=== PATIENT | female | born 1965 | race African-American/Black ===

== ENCOUNTER → 2016-08-07 | Outpatient (CLI) | payer BC ==
[2015-05-21 21:23] VITALS: BP 111/61
[~2016-08-07] MED LIST: ALBU2.5V5 NEB; AMLO5TAB2 PO; ATOR10TA60 PO; FURO40TA4 PO; GLYB5TAB3 PO; POTA20TA4 PO
--- NOTE | 2016-08-07 14:06 | RAD ---
DATE: 08/07/2016 EXAM: DIGITAL SCREEN BILAT W/CAD HISTORY: Screening COMPARISON: 3 years earlier This study was interpreted with the benefit of Computerized Aided Detection (CAD). FINDINGS: The breast parenchyma is primarily fatty replaced. Breast parenchyma level density A.. There is a reasonably well-defined density, almost certainly benign, along the plane of the nipple in the right breast on the cc view. A coned compression view and rolled CC views are suggested. A definite correlate is not seen on the corresponding MLO view. The left breast appears unchanged IMPRESSION: Density in the right breast for which additional imaging is suggested BI-RADS CATEGORY: 0 INCOMPLETE: NEED ADDITIONAL IMAGING EVAULATION AND/OR PRIOR MAMMOGRAMS FOR COMPARISON RECOMMENDED FOLLOW-UP: ADD ADDITIONAL IMAGING PQRS compliance statement: Patient information was entered into a reminder system with a target due date soon for the next mammogram. Mammography is a sensitive method for finding small breast cancers, but it does not detect them all and is not a substitute for careful clinical examination. A negative mammogram does not negate a clinically suspicious finding and should not result in delay in biopsying a clinically suspicious abnormality. "Our facility is accredited by the [employer] Mammography [employer]."
== END | disposition home or self-care (01) ==
LOC: MAMMO 16:39
PROVIDERS: ATTEND Family Medicine
DX: Z12.31 Encounter for screening mammogram for malignant neoplasm of breast (principal)
CPT/HCPCS: 77052; G0202

== ENCOUNTER → 2016-10-15 | Outpatient (CLI) | payer BC ==
[2015-05-21 21:23] VITALS: BP 111/61
--- NOTE | 2016-10-22 10:45 | RAD ---
DATE: 10/15/2016 EXAM: DIGITAL DIAGNOSTIC RT HISTORY: Suspicious screening study COMPARISON: 08/07/2016, 07/30/2013 This study was interpreted with the benefit of Computerized Aided Detection (CAD). FINDINGS: Additional views of the right breast confirm the presence of a small 6 to 7 mm nodule at approximately the 6:00 location in the right breast. Its margins are smooth. No microcalcifications are seen. Right breast ultrasound, 10/15/2016: A targeted ultrasound exam of the right breast was performed at the 6:00 location. Approximately 4 cm below the level of the nipple there is a small hypoechoic nodule identified measuring 5.8 x 6.4 x 3.3 mm. There are low level internal echoes. No posterior acoustic enhancement or shadowing is seen. Some of its margins are smooth while others are less clearly defined. This may be a complicated cyst or solid nodule. This corresponds in size and location to the mammographic abnormality. No other abnormality is seen. IMPRESSION: Suspicious small nodule at the 6:00 location in the right breast as described above. Ultrasound-guided biopsy is suggested for further evaluation. BI-RADS CATEGORY: 4 SUSPICIOUS ABNORMALITY- BIOPSY SHOULD BE CONSIDERED RECOMMENDED FOLLOW-UP: BIO BIOPSY RECOMMENDED Note: The findings were discussed with the patient at the time of the exam and she is aware of the recommendation for biopsy. She will follow-up with the ordering physician. PQRS compliance statement: Patient information was entered into a reminder system with a target due date for the next mammogram. Mammography is a sensitive method for finding small breast cancers, but it does not detect them all and is not a substitute for careful clinical examination. A negative mammogram does not negate a clinically suspicious finding and should not result in delay in biopsying a clinically suspicious abnormality. "Our facility is accredited by the [employer] Mammography [employer]." DICTATED and SIGNED BY: YULIANA NATION MD DATE: 10/15/16 1331 MTDArlene
== END | disposition home or self-care (01) ==
LOC: MAMMO 13:01
PROVIDERS: ATTEND Family Medicine
DX: R92.8 Other abnormal and inconclusive findings on diagnostic imaging of breast (principal)
CPT/HCPCS: 76641; G0206; 77065

== ENCOUNTER 2017-09-20 16:31 | Emergency (ER) | payer MEDICAID ==
[2017-09-20 18:06] LABS: INFLUENZA A PATIENT NEGATIVE (NEGATIVE); INFLUENZA B PATIENT NEGATIVE (NEGATIVE); OBC FLU VALID
== END 2017-09-20 18:23 | disposition home or self-care (01) ==
LOC: ER 18:23
DX: J01.90 Acute sinusitis, unspecified (principal); I11.0 Hypertensive heart disease with heart failure; I50.9 Heart failure, unspecified; K21.9 Gastro-esophageal reflux disease without esophagitis; E78.00 Pure hypercholesterolemia, unspecified; E11.9 Type 2 diabetes mellitus without complications; J45.909 Unspecified asthma, uncomplicated; Z98.51 Tubal ligation status; Z88.0 Allergy status to penicillin; Z88.5 Allergy status to narcotic agent; Z88.8 Allergy status to other drugs, medicaments and biological substances; Z91.040 Latex allergy status
CPT/HCPCS: 87804; 87804-59; 99284

== ENCOUNTER → 2017-10-14 | Outpatient (CLI) | payer MEDICAID, OTHER ==
[~2017-10-14] MED LIST changes: -ALBU2.5V5 NEB; -AMLO5TAB2 PO; -ATOR10TA60 PO; -FURO40TA4 PO; -GLYB5TAB3 PO; +LIDOCAINE 1% Multi-Dose 20 ML VIAL. INJ; +LIDOCAINE 2%/EPI 1:100,000 20 ML VIAL. IJ; -POTA20TA4 PO
== END | disposition home or self-care (01) ==
LOC: US 07:59
DX: D24.1 Benign neoplasm of right breast (principal); N62 Hypertrophy of breast; N60.41 Mammary duct ectasia of right breast; N60.81 Other benign mammary dysplasias of right breast; N60.31 Fibrosclerosis of right breast; Z88.0 Allergy status to penicillin; Z88.5 Allergy status to narcotic agent; Z91.040 Latex allergy status; Z88.8 Allergy status to other drugs, medicaments and biological substances
CPT/HCPCS: 19081; 76942; 77065; 88305; C1713

== ENCOUNTER → 2017-10-31 | Outpatient (CLI) | payer MEDICAID | END | disposition home or self-care (01) | LOC: ECHO 08:39 | DX: I10 Essential (primary) hypertension (principal); I51.7 Cardiomegaly; R06.00 Dyspnea, unspecified; R53.83 Other fatigue | CPT/HCPCS: 93306 ==

== ENCOUNTER 2019-05-05 18:03 | Emergency (ER) | payer MEDICAID ==
[~2019-05-05] VITALS: Ht 149.9 cm; Wt 106.6 kg
[~2019-05-05 18:03] MED LIST changes: +ALBU2.5V5 NEB; +AMLO5TAB10 PO; +ATOR10TA60 PO; +DOXY100C2 PO; +FURO40TA4 PO; +GLYB5TAB3 PO; -LIDOCAINE 1% Multi-Dose 20 ML VIAL. INJ; -LIDOCAINE 2%/EPI 1:100,000 20 ML VIAL. IJ; +POTA20TA4 PO
--- NOTE | 2019-05-05 18:43 | PHYS DOC ---
Past Medical History Past Medical History: Asthma, CHF, Diabetes-Type II, GERD, High Cholesterol, Hypertension, Other Additional Past Medical Histor: morbidly obese Past Surgical History: Tubal ligation Alcohol Use: None Drug Use: None Adult General Chief Complaint Chief Complaint: MECHANICAL FALL HPI HPI 53-year-old female presents to the emergency department after a fall around 4:15 today. Patient states she was getting out of the car, felt dizzy fell backwards hitting her head unknown loss of consciousness, states she was on the floor possibly 30 minutes. She denies any blood thinning medications. Patient is a History of hypertension, hyperlipidemia, depression, COPD. Patient denies any chest pain, shortness of breath, nausea, vomiting. She does have headache, neck pain, back pain with pinpoint tenderness along her thoracic and lumbar spine. She denies any symptoms prior to her dizziness. Movements make her pain worse and nothing makes his pain better. Review of Systems Review of Systems Constitutional: Denies fever or chills [] Eyes: Denies change in visual acuity, redness, or eye pain [] HENT: Denies nasal congestion or sore throat [] Respiratory: Denies cough or shortness of breath [] Cardiovascular: No additional information not addressed in HPI [] GI: Denies abdominal pain, nausea, vomiting, bloody stools or diarrhea [] : Denies dysuria or hematuria [] Musculoskeletal: Neck, back pain thoracic and lumbar Integument: Denies rash or skin lesions [] Neurologic: Headache, no visual changes All other systems were reviewed and found to be within normal limits, except as documented in this note. Current Medications Current Medications Current Medications Medications (Trade) Dose Ordered Sig/Consuelo Start Time Stop Time Status Last Admin Dose Admin Info (CONTRAST GIVEN -- Rx MONITORING) 1 each PRN DAILY PRN 05/05/19 20:45 05/07/19 20:44 Iohexol (Omnipaque 350 Mg/ml) 70 ml 1X ONCE 05/05/19 20:45 05/05/19 20:46 DC 05/05/19 20:49 70 ML Ketorolac Tromethamine (Toradol 30mg Vial) 30 mg 1X ONCE 05/05/19 20:00 05/05/19 20:01 DC 05/05/19 19:57 30 MG Tramadol HCl (Ultram) 50 mg 1X ONCE 05/05/19 21:00 05/05/19 21:01 DC 05/05/19 21:18 50 MG Allergies Allergies Allergies Coded Allergies Type Severity Reaction Last Updated Verified Penicillins Allergy Intermediate 01/10/15 Yes codeine Allergy Intermediate vomiting 01/10/15 Yes latex Allergy Intermediate rash 01/10/15 Yes metformin Allergy Intermediate n/v 01/10/15 Yes Physical Exam Physical Exam Constitutional: Well developed, well nourished, distressed secondary to pain HENT: Normocephalic, atraumatic, bilateral external ears normal, oropharynx moist, no oral exudates, nose normal. [] Eyes: PERRLA, EOMI, conjunctiva normal, no discharge. [] Neck: Palpation with range of motion, midline Cardiovascular:Heart rate regular rhythm, no murmur [] Lungs & Thorax: Bilateral breath sounds clear to auscultation [] Abdomen: Bowel sounds normal, soft, no tenderness, no masses, no pulsatile masses. [] Skin: Warm, dry, no erythema, no rash. [] Back: No CVA tenderness, midline tenderness from thoracic all the lumbar spine Extremities: No tenderness, no cyanosis, range of motion intact no edema. [] Neurologic: Alert and oriented X 3, no focal deficits noted. [] Psychologic: Affect normal, judgement normal, mood normal. [] Current Patient Data Vital Signs Vital Signs Date Time Temp Pulse Resp B/P (MAP) Pulse Ox O2 Delivery O2 Flow Rate FiO2 05/05/19 21:18 20 05/05/19 18:22 98.2 85 111/61 (78) 97 Room Air 98.2 Lab Values Laboratory Tests Test 05/05/19 18:15 05/05/19 19:45 Urine Collection Type Unknown Urine Color Yellow Urine Clarity Clear Urine pH 6.0 Urine Specific Endeavor 1.020 Urine Protein Negative mg/dL (NEG-TRACE) Urine Glucose (UA) >=1000 mg/dL (NEG) Urine Ketones (Stick) Negative mg/dL (NEG) Urine Blood Negative (NEG) Urine Nitrite Negative (NEG) Urine Bilirubin Negative (NEG) Urine Urobilinogen Dipstick 1.0 mg/dL (0.2 mg/dL) Urine Leukocyte Esterase Negative (NEG) Urine RBC 1-2 /HPF (0-2) Urine WBC 5-10 /HPF (0-4) Urine Squamous Epithelial Cells Mod /LPF Urine Bacteria Few /HPF (0-FEW) White Blood Count 10.4 x10^3/uL (4.0-11.0) Red Blood Count 4.72 x10^6/uL (3.50-5.40) Hemoglobin 13.0 g/dL (12.0-15.5) Hematocrit 39.4 % (36.0-47.0) Mean Corpuscular Volume 84 fL (79-100) Mean Corpuscular Hemoglobin 28 pg (25-35) Mean Corpuscular Hemoglobin Concent 33 g/dL (31-37) Red Cell Distribution Width 16.3 % (11.5-14.5) H Platelet Count 274 x10^3/uL (140-400) Neutrophils (%) (Auto) 54 % (31-73) Lymphocytes (%) (Auto) 36 % (24-48) Monocytes (%) (Auto) 9 % (0-9) Eosinophils (%) (Auto) 0 % (0-3) Basophils (%) (Auto) 0 % (0-3) Neutrophils # (Auto) 5.6 x10^3/uL (1.8-7.7) Lymphocytes # (Auto) 3.7 x10^3/uL (1.0-4.8) Monocytes # (Auto) 1.0 x10^3/uL (0.0-1.1) Eosinophils # (Auto) 0.0 x10^3/uL (0.0-0.7) Basophils # (Auto) 0.0 x10^3/uL (0.0-0.2) D-Dimer (Esperanza) 3.01 ug/mlFEU (0.00-0.50) H Sodium Level 138 mmol/L (136-145) Potassium Level 3.8 mmol/L (3.5-5.1) Chloride Level 101 mmol/L (98-107) Carbon Dioxide Level 25 mmol/L (21-32) Anion Gap 12 (6-14) Blood Urea Nitrogen 13 mg/dL (7-20) Creatinine 1.2 mg/dL (0.6-1.0) H Estimated GFR (Cockcroft-Gault) 56.6 BUN/Creatinine Ratio 11 (6-20) Glucose Level 130 mg/dL (70-99) H Calcium Level 9.9 mg/dL (8.5-10.1) Total Bilirubin 0.3 mg/dL (0.2-1.0) Aspartate Amino Transferase (AST) 18 U/L (15-37) Alanine Aminotransferase (ALT) 15 U/L (14-59) Alkaline Phosphatase 102 U/L (46-116) Troponin I Quantitative < 0.017 ng/mL (0.000-0.055) Total Protein 8.2 g/dL (6.4-8.2) Albumin 3.4 g/dL (3.4-5.0) Albumin/Globulin Ratio 0.7 (1.0-1.7) L Laboratory Tests 05/05/19 19:45 Laboratory Tests 05/05/19 19:45 EKG EKG EKG reviewed, sinus rhythm, heart rate 81, QT 390, no evidence of ST elevation appreciated. NON - Urgent EKG[] Interpretation Time: Interpretation time 1830 Radiology/Procedures Radiology/Procedures [facility] [address] [place] [address] IMAGING REPORT Signed PATIENT: BELLE FATIMA ACCOUNT: [id number] : 1965 LOCATION: ER AGE: 53 SEX: F EXAM STATUS: REG ER ORD. PHYSICIAN: LUCAS TOVAR MD REASON: fall with LOC, neck pain and ttp midline all the way down PROCEDURE: CT HEAD AND CERVICAL SPINE WO CT Head W/O Contrast: History: Fall with loss of consciousness Comparison: none Axial images were obtained without contrast. The ann and white matter appears normal and symmetrical for the patients age. There is no mass effect, extraaxial fluid collections or hydrocephalus. There is no gross bleed. There is no focal loss of ann-white matter distinction to suggest acute ischemia, i.e. stroke. Impression: No acute findings. End impression CT C-Spine without contrast: Clinical History: Pain status post fall Technique: Axial helical images of the cervical spine were obtained without contrast, axial coronal and sagittal reconstruction was performed. Findings: There is no loss of vertebral body stature. There is no prevertebral soft tissue swelling. The vertebral bodies are well aligned. There is straightening of the normal cervical lordosis which can be positional or could be chronic. The C1-C2 relationship is normal. The visualized osseous structures appear intact. There is congenital nonunion of the posterior arch of C1. Evaluation of the central canal is limited without contrast. There is multiple posterior disc bulges resulting in flattening of the thecal sac. There does not appear to be gross flattening of the cervical cord. There is moderate narrowing of multiple neuroforamen. Impression: No acute findings. Clinical correlation suggested. End impression CT thoracic spine without contrast History: Back pain Axial helical images of the thoracic spine were obtained without contrast. Axial, coronal and sagittal reconstruction was performed. Findings: The vertebral bodies are aligned. There is no loss of vertebral body stature. Evaluation of the central canal is limited without contrast. There is no evidence of significant central or neuroforaminal stenosis. Impression: No acute findings. End impression CT lumbar spine without contrast History: Back pain Axial helical images of the lumbar spine were obtained without contrast. Axial, coronal and sagittal reconstruction was performed. Findings: The vertebral bodies are aligned. There is no loss of vertebral body stature. Evaluation of the central canal is limited without contrast. There is no significant central or neuroforaminal stenosis. Impression: No acute findings. RS Compliance Statement: One or more of the following individualized dose reduction techniques were utilized for this examination: 1. Automated exposure control 2. Adjustment of the mA and/or kV according to patient size 3. Use of iterative reconstruction technique Electronically signed by: Leeroy Estevez III, MD (05/05/2019 7:55 PM) [facility] DICTATED and SIGNED BY: LEEROY ESTEVEZ III, MD DATE: 05/05/191954 [] [facility] [address] [place] [address] IMAGING REPORT Signed PATIENT: BELLE FATIMA ACCOUNT: [id number] : 1965 LOCATION: ER AGE: 53 SEX: F EXAM STATUS: REG ER ORD. PHYSICIAN: LUCAS TOVAR MD REASON: syncope, elevated ddimer PROCEDURE: CT ANGIOGRAPHY CHEST Exam: CT of chest with contrast INDICATION: Syncope TECHNIQUE: Sequential axial images through the chest obtained following the administration of 70 mL of Isovue-370 IV contrast. Sagittal and coronal reformatted images were reconstructed from the axial data and reviewed. 3-D reformatted images were reconstructed from the axial data and reviewed. Comparisons: None FINDINGS: Visualized portions of the thyroid are unremarkable. No enlarged mediastinal lymph nodes. Heart size is normal. No pericardial effusion. Thoracic aorta has a normal course and caliber. Pulmonary artery is not enlarged. No pulmonary embolus identified within the main, lobar or segmental pulmonary arteries. Airways are patent. No consolidation or pneumothorax. No suspicious lung nodules are identified. No pleural effusion or thickening. No suspicious osseous lesions or acute fractures. IMPRESSION: No pulmonary embolus identified within the main, lobar or segmental pulmonary arteries. Exposure: One or more of the following in the visualized dose reduction techniques were utilized for this examination: 1. Automated exposure control 2. Adjustment of the MA and/or KV according to patient size 3. Use of iterative of reconstructive technique Electronically signed by: Yudy Haque MD (05/05/2019 9:21 PM) [facility] DICTATED and SIGNED BY: YUDY HAQUE MD DATE: 05/05/192120 Course & Med Decision Making Course & Med Decision Making Pertinent Labs and Imaging studies reviewed. (See chart for details) []53-year-old female presents to the emergency department after a fall around 4:15 today. Patient states she was getting out of the car, felt dizzy fell backwards hitting her head unknown loss of consciousness, states she was on the floor possibly 30 minutes. She denies any blood thinning medications. Patient is a History of hypertension, hyperlipidemia, depression, COPD. Patient denies any chest pain, shortness of breath, nausea, vomiting. She does have headache, neck pain, back pain with pinpoint tenderness along her thoracic and lumbar spine. She denies any symptoms prior to her dizziness. Movements make her pain worse and nothing makes his pain better. Labs reviewed, elevated d-dimer 3.0, age-adjusted should be 0.54. Plan for further evaluation with CT of the chest rule out PE. Orthostatic vital signs reviewed patient is not orthostatic on exam (see nursing notes). Negative CTA for PE. Plan for discharge home discharge instructions provided, patient aware of plans for discharge. Plan for pain med and muscle relaxer upon discharge Dragon Disclaimer Dragon Disclaimer This electronic medical record was generated, in whole or in part, using a voice recognition dictation system. Departure Departure Impression: Primary Impression: Fall Additional Impressions: Neck pain Back pain Disposition: HOME, SELF-CARE Condition: STABLE Referrals: Tristin YAO MD (PCP) Patient Instructions: Back Pain, Adult, Pody-wa-Xeto, Fall Prevention and Home Safety, [id number], Soft Tissue Injury of the Neck, [place] Additional Instructions: Recommend follow up with PCP 3 - 5 days Return to the ER with worsening symptoms, intractable pain, fever, altered mental status Tylenol/Motrin as needed for pain Tramadol rx provided for pain Flexeril rx provided for muscle spasm Scripts Cyclobenzaprine Hcl (CYCLOBENZAPRINE HCL) 10 Mg Tablet 1 TAB PO BID PRN for MUSCLE SPASMS, #21 TAB Prov: LUCAS TOVAR MD 05/05/19 Tramadol Hcl (TRAMADOL HCL) 50 Mg Tablet 50 MG PO Q6HRS PRN for PAIN for 5 Days, #20 TAB Prov: LUCAS TOVAR MD 05/05/19 Problem Qualifiers Primary Impression: Fall Encounter type: initial encounter Qualified Codes: W19.XXXA - Unspecified fall, initial encounter Additional Impressions: Back pain Back pain location: thoracic back pain Chronicity: acute Back pain laterality: midline Qualified Codes: M54.6 - Pain in thoracic spine LUCAS TOVAR MD May 05, 2019 18:43
[2019-05-05 19:11] LABS: BILIRUBIN,URINE NEGATIVE (NEG); CLARITY,URINE CLEAR; COLOR,URINE YELLOW; NITRITE,URINE NEGATIVE (NEG); PROTEIN,URINE NEGATIVE (NEG-TRACE)
[2019-05-05] MEDS ORDERED: KETOROLAC 30 MG/ML VIAL. IM ONE (19:15)
[2019-05-05 19:22] LABS: BACTERIA,URINE FEW /HPF (0-FEW); SQUAMOUS EPITHELIAL CELL,UR MOD /LPF
[2019-05-05 19:56] LABS: BASO % 0 % (0-3); EOS % 0 % (0-3); HEMATOCRIT 39.4 % (36.0-47.0); LYMPH # 3.7 x10^3/uL (1.0-4.8); LYMPH % 36 % (24-48); MEAN CORPUSCULAR HEMOGLOBIN 28 pg (25-35); MEAN CORPUSCULAR HGB CONC 33 g/dL (31-37); MEAN CORPUSCULAR VOLUME 84 fL (79-100); MONO % 9 % (0-9); NEUT # 5.6 x10^3/uL (1.8-7.7); NEUT % 54 % (31-73); PLATELET COUNT 274 x10^3/uL (140-400); RED BLOOD COUNT 4.72 x10^6/uL (3.50-5.40); RED CELL DISTRIBUTION WIDTH 16.3 % (11.5-14.5); WHITE BLOOD COUNT 10.4 x10^3/uL (4.0-11.0)
--- NOTE | 2019-05-05 19:58 | RAD ---
CT Head W/O Contrast: History: Fall with loss of consciousness Comparison: none Axial images were obtained without contrast. The ann and white matter appears normal and symmetrical for the patients age. There is no mass effect, extraaxial fluid collections or hydrocephalus. There is no gross bleed. There is no focal loss of ann-white matter distinction to suggest acute ischemia, i.e. stroke. Impression: No acute findings. End impression CT C-Spine without contrast: Clinical History: Pain status post fall Technique: Axial helical images of the cervical spine were obtained without contrast, axial coronal and sagittal reconstruction was performed. Findings: There is no loss of vertebral body stature. There is no prevertebral soft tissue swelling. The vertebral bodies are well aligned. There is straightening of the normal cervical lordosis which can be positional or could be chronic. The C1-C2 relationship is normal. The visualized osseous structures appear intact. There is congenital nonunion of the posterior arch of C1. Evaluation of the central canal is limited without contrast. There is multiple posterior disc bulges resulting in flattening of the thecal sac. There does not appear to be gross flattening of the cervical cord. There is moderate narrowing of multiple neuroforamen. Impression: No acute findings. Clinical correlation suggested. End impression CT thoracic spine without contrast History: Back pain Axial helical images of the thoracic spine were obtained without contrast. Axial, coronal and sagittal reconstruction was performed. Findings: The vertebral bodies are aligned. There is no loss of vertebral body stature. Evaluation of the central canal is limited without contrast. There is no evidence of significant central or neuroforaminal stenosis. Impression: No acute findings. End impression CT lumbar spine without contrast History: Back pain Axial helical images of the lumbar spine were obtained without contrast. Axial, coronal and sagittal reconstruction was performed. Findings: The vertebral bodies are aligned. There is no loss of vertebral body stature. Evaluation of the central canal is limited without contrast. There is no significant central or neuroforaminal stenosis. Impression: No acute findings. PQRS Compliance Statement: One or more of the following individualized dose reduction techniques were utilized for this examination: 1. Automated exposure control 2. Adjustment of the mA and/or kV according to patient size 3. Use of iterative reconstruction technique Electronically signed by: Amol Dewitt III, MD (05/05/2019 7:55 PM) [facility]
[2019-05-05] MEDS ORDERED: KETOROLAC 30 MG/ML VIAL. IV ONE (20:00)
[2019-05-05 20:10] LABS: CALCIUM 9.9 mg/dL (8.5-10.1); CREATININE 1.2 mg/dL (0.6-1.0); GFR 56.6; POTASSIUM 3.8 mmol/L (3.5-5.1)
[2019-05-05 20:16] LABS: ALBUMIN 3.4 g/dL (3.4-5.0); ALBUMIN/GLOBULIN RATIO 0.7 (1.0-1.7); TOTAL BILIRUBIN 0.3 mg/dL (0.2-1.0); TOTAL PROTEIN 8.2 g/dL (6.4-8.2)
[2019-05-05 20:24] VITALS: BP 147/84
[2019-05-05] MEDS ORDERED: CONTRAST GIVEN. MC PRN (20:45)
[2019-05-05] MEDS ORDERED: IOHEXOL 350 MG/ML 100 ML VIAL. IV ONE (20:45)
[2019-05-05] MEDS ORDERED: traMADol 50 MG TABLET PO ONE (21:00)
--- NOTE | 2019-05-05 21:24 | RAD ---
Exam: CT of chest with contrast INDICATION: Syncope TECHNIQUE: Sequential axial images through the chest obtained following the administration of 70 mL of Isovue-370 IV contrast. Sagittal and coronal reformatted images were reconstructed from the axial data and reviewed. 3-D reformatted images were reconstructed from the axial data and reviewed. Comparisons: None FINDINGS: Visualized portions of the thyroid are unremarkable. No enlarged mediastinal lymph nodes. Heart size is normal. No pericardial effusion. Thoracic aorta has a normal course and caliber. Pulmonary artery is not enlarged. No pulmonary embolus identified within the main, lobar or segmental pulmonary arteries. Airways are patent. No consolidation or pneumothorax. No suspicious lung nodules are identified. No pleural effusion or thickening. No suspicious osseous lesions or acute fractures. IMPRESSION: No pulmonary embolus identified within the main, lobar or segmental pulmonary arteries. Exposure: One or more of the following in the visualized dose reduction techniques were utilized for this examination: 1. Automated exposure control 2. Adjustment of the MA and/or KV according to patient size 3. Use of iterative of reconstructive technique Electronically signed by: Yudy Silva MD (05/05/2019 9:21 PM) [facility]
[2019-05-05] MEDS ORDERED: TRAM50TA PO (21:34)
[2019-05-05] MEDS ORDERED: CYCL10TA2 PO (21:34)
[2019-05-06] MEDS ORDERED: IOHEXOL 350 MG/ML 100 ML VIAL. ONE (04:32)
== END 2019-05-05 22:08 | disposition home or self-care (01) ==
LOC: ER 18:03
DX: M54.5 Low back pain (principal); M54.6 Pain in thoracic spine; M54.2 Cervicalgia; G89.11 Acute pain due to trauma; R51 Headache; R42 Dizziness and giddiness; K21.9 Gastro-esophageal reflux disease without esophagitis; E78.00 Pure hypercholesterolemia, unspecified; I11.0 Hypertensive heart disease with heart failure; I50.9 Heart failure, unspecified; J45.909 Unspecified asthma, uncomplicated; E66.01 Morbid (severe) obesity due to excess calories; Z68.42 Body mass index [BMI] 45.0-49.9, adult; Z98.51 Tubal ligation status; Z88.0 Allergy status to penicillin; Z88.5 Allergy status to narcotic agent; Z91.040 Latex allergy status; Z88.8 Allergy status to other drugs, medicaments and biological substances; W18.39XA Other fall on same level, initial encounter; Y93.89 Activity, other specified; Y92.89 Other specified places as the place of occurrence of the external cause; Y99.8 Other external cause status
CPT/HCPCS: 36415; 70450; 71275; 72125; 72128; 72131; 80053; 81001; 84484; 85025; 85379; 87086; 96372; 96374; 99285; J1885; Q9967

== ENCOUNTER 2020-09-07 02:52 | Observation (INO) | payer MEDICAID ==
[~2020-09-07] VITALS: Ht 152.4 cm; Wt 116.2 kg
[~2020-09-07 02:52] MED LIST changes: +AMLO-186 PO; -AMLO5TAB10 PO; +CYCL10TA2 PO; +TRAM50TA PO
--- NOTE | 2020-09-07 03:15 | EKG ---
[facility] [address] [place] [address] Test Date: 2020-09-07 Test Time: 02:58:50 Pat Name: BELLE FATIMA Department: Room: Gender: F [place] Operator: : 1965 Requested By: SELMA ELIZALDE Order Number: [id number] Reading MD: Measurements Intervals [place] Rate: 93 P: 90 MN: 162 QRS: 4 QRSD: 76 T: 4 QT: 372 QTc: 465 Interpretive Statements SINUS RHYTHM LOW VOLTAGE ABNORMAL ECG RI6.02 No previous ECG available for comparison
[2020-09-07 03:32] LABS: BASO % 1 % (0-3); EOS # 0.1 x10^3/uL (0.0-0.7); EOS % 1 % (0-3); HEMATOCRIT 38.9 % (36.0-47.0); HEMOGLOBIN 12.7 g/dL (12.0-15.5); LYMPH # 2.8 x10^3/uL (1.0-4.8); LYMPH % 37 % (24-48); MEAN CORPUSCULAR HEMOGLOBIN 28 pg (25-35); MEAN CORPUSCULAR HGB CONC 33 g/dL (31-37); MEAN CORPUSCULAR VOLUME 84 fL (79-100); MONO # 0.5 x10^3/uL (0.0-1.1); MONO % 6 % (0-9); NEUT # 4.2 x10^3/uL (1.8-7.7); NEUT % 56 % (31-73); PLATELET COUNT 311 x10^3/uL (140-400); RED BLOOD COUNT 4.62 x10^6/uL (3.50-5.40); RED CELL DISTRIBUTION WIDTH 15.3 % (11.5-14.5); WHITE BLOOD COUNT 7.5 x10^3/uL (4.0-11.0)
--- NOTE | 2020-09-07 03:33 | ED.ADGEN ---
Past Medical History Past Medical History: Anxiety, Asthma, CHF, Depression, Diabetes-Type II, GERD, High Cholesterol, Hypertension, Other Additional Past Medical Histor: morbidly obese Past Surgical History: Tubal ligation Smoking Status: Never Smoker Alcohol Use: None Drug Use: None General Adult EDM: Chief Complaint: CHEST PAIN HPI: HPI: Patient is a 54 year old female coming in with burning chest pain that radiates to her neck for 4 to 5 days. Was seen at [facility] had lab work and x-ray done but was discharged. She was told that it was a medication reaction. Patient states the pain is not worse but is now radiating to her back. Also complaining of shakiness in her hands and legs. Also complaining of blurred vision in both eyes. Denies any recent heavy lifting or trauma. Has history of hypertension but no other cardiac history. States that she was taking Januvia but was told that her last ED visit to stop taking it. Her blood sugar has been well controlled. Denies any fevers, cough sore throat vomiting or diarrhea. Review of Systems: Review of Systems: All other systems within normal limits except for as noted in the HPI Current Medications: Current Medications Medications (Trade) Dose Ordered Sig/Consuelo Start Time Stop Time Status Last Admin Dose Admin Aspirin (Aspirin Chewable) 324 mg 1X ONCE 09/07/20 04:00 09/07/20 04:02 DC 09/07/20 03:30 324 MG Info (CONTRAST GIVEN -- Rx MONITORING) 1 each PRN DAILY PRN 09/07/20 04:45 09/09/20 04:44 Iohexol (Omnipaque 350 Mg/ml) 100 ml 1X ONCE 09/07/20 05:00 09/07/20 05:01 DC 09/07/20 04:50 100 ML Ketorolac Tromethamine (Toradol 15mg Vial) 15 mg 1X ONCE 09/07/20 06:00 09/07/20 06:01 09/07/20 05:39 15 MG Multi-Ingredient Mouthwash/Gargle (Gi Cocktail) 20 ml 1X ONCE 09/07/20 05:30 09/07/20 05:31 DC 09/07/20 05:20 20 ML Allergies: Allergies: Allergies Coded Allergies Type Severity Reaction Last Updated Verified Penicillins Allergy Intermediate 01/10/15 Yes codeine Allergy Intermediate vomiting 01/10/15 Yes latex Allergy Intermediate rash 01/10/15 Yes metformin Allergy Intermediate n/v 01/10/15 Yes Physical Exam: PE: Constitutional: Well developed, well nourished, no acute distress, non-toxic appearance. [] HENT: Normocephalic, atraumatic, bilateral external ears normal, nose normal. [] Eyes: PERRLA, conjunctiva normal, no discharge, extraocular movement intact. [] Neck: No rigidity, supple, no stridor, bilateral neck tenderness, no lymphadenopathy. [] Cardiovascular: Regular rate and rhythm, brisk cap refill, symmetric pulses [] Lungs & Thorax: Non labored symmetric respirations, no tachypnea or respiratory distress left anterior chest tenderness. Clear bilateral breath sounds [] Abdomen: Soft, nondistended, no tenderness. Skin: Warm, dry, no erythema, no rash. [] Back: Unremarkable Extremities: No deformities, range of motion grossly intact, no lower extremity edema [] Neurologic: Alert and oriented X 3, no focal deficits noted. cranial nerves intact and symmetric, upper and lower extremities 5 out of 5 strength, no sensory defects[] Psychologic: Affect normal, judgement normal, mood normal. [] Current Patient Data: Labs: Laboratory Tests Test 09/07/20 03:10 09/07/20 03:40 White Blood Count 7.5 x10^3/uL (4.0-11.0) Red Blood Count 4.62 x10^6/uL (3.50-5.40) Hemoglobin 12.7 g/dL (12.0-15.5) Hematocrit 38.9 % (36.0-47.0) Mean Corpuscular Volume 84 fL (79-100) Mean Corpuscular Hemoglobin 28 pg (25-35) Mean Corpuscular Hemoglobin Concent 33 g/dL (31-37) Red Cell Distribution Width 15.3 % (11.5-14.5) H Platelet Count 311 x10^3/uL (140-400) Neutrophils (%) (Auto) 56 % (31-73) Lymphocytes (%) (Auto) 37 % (24-48) Monocytes (%) (Auto) 6 % (0-9) Eosinophils (%) (Auto) 1 % (0-3) Basophils (%) (Auto) 1 % (0-3) Neutrophils # (Auto) 4.2 x10^3/uL (1.8-7.7) Lymphocytes # (Auto) 2.8 x10^3/uL (1.0-4.8) Monocytes # (Auto) 0.5 x10^3/uL (0.0-1.1) Eosinophils # (Auto) 0.1 x10^3/uL (0.0-0.7) Basophils # (Auto) 0.0 x10^3/uL (0.0-0.2) D-Dimer (Esperanza) 0.35 ug/mlFEU (0.00-0.50) Sodium Level 139 mmol/L (136-145) Potassium Level 4.2 mmol/L (3.5-5.1) Chloride Level 102 mmol/L (98-107) Carbon Dioxide Level 24 mmol/L (21-32) Anion Gap 13 (6-14) Blood Urea Nitrogen 10 mg/dL (7-20) Creatinine 0.8 mg/dL (0.6-1.0) Estimated GFR (Cockcroft-Gault) 90.1 BUN/Creatinine Ratio 13 (6-20) Glucose Level 136 mg/dL (70-99) H Lactic Acid Level 1.2 mmol/L (0.4-2.0) Calcium Level 9.6 mg/dL (8.5-10.1) Magnesium Level 2.0 mg/dL (1.8-2.4) Total Bilirubin 0.4 mg/dL (0.2-1.0) Aspartate Amino Transferase (AST) 18 U/L (15-37) Alanine Aminotransferase (ALT) 25 U/L (14-59) Alkaline Phosphatase 107 U/L (46-116) Creatine Kinase 141 U/L (26-192) Myoglobin 52 ng/mL (9-82) Troponin I Quantitative < 0.017 ng/mL (0.000-0.055) LZ-Emh-R-Type Natriuretic Peptide 41 pg/mL (0-124) Total Protein 7.9 g/dL (6.4-8.2) Albumin 3.6 g/dL (3.4-5.0) Albumin/Globulin Ratio 0.8 (1.0-1.7) L Lipase 27 U/L (73-393) L Urine Collection Type Unknown Urine Color Yellow Urine Clarity Clear Urine pH 5.0 (<5.0-8.0) Urine Specific [place] 1.010 (1.000-1.030) Urine Protein Negative mg/dL (NEG-TRACE) Urine Glucose (UA) Negative mg/dL (NEG) Urine Ketones (Stick) Negative mg/dL (NEG) Urine Blood Negative (NEG) Urine Nitrite Negative (NEG) Urine Bilirubin Negative (NEG) Urine Urobilinogen Dipstick 0.2 mg/dL (0.2 mg/dL) Urine Leukocyte Esterase Negative (NEG) Urine RBC 0 /HPF (0-2) Urine WBC Occ /HPF (0-4) Urine Squamous Epithelial Cells Few /LPF Urine Bacteria 0 /HPF (0-FEW) Laboratory Tests 09/07/20 03:10 Laboratory Tests 09/07/20 03:10 Vital Signs: Vital Signs Date Time Temp Pulse Resp B/P (MAP) Pulse Ox O2 Delivery O2 Flow Rate FiO2 09/07/20 05:11 66 20 128/77 (94) 96 Room Air 09/07/20 02:53 98.0 98.0 EKG: EKG: Sinus rhythm, heart rate 93 bpm, indeterminate axis, no ST elevation or depression, no ectopy, normal intervals. No significant changes when compared to ECG from 2015 [] Heart Score: Risk Factors: Risk Factors: DM, Current or recent (<one month) smoker, HTN, HLP, family history of CAD, obesity. Risk Scores: Score 0 - 3: 2.5% MACE over next 6 weeks - Discharge Home Score 4 - 6: 20.3% MACE over next 6 weeks - Admit for Clinical Observation Score 7 - 10: 72.7% MACE over next 6 weeks - Early Invasive Strategies Radiology/Procedures: Radiology/Procedures: ADDENDUM #1 Addendum: The body the report should state there is heterogeneous fatty infiltration and atrophy of the pancreas similar to the prior exam. The original report had a voice recognition plaster patternmaker error. Electronically signed by: Ge Sanchez MD (09/07/2020 5:15 AM) [facility] angiography chest with contrast PQRS statement: CT scans at this facility use dose reduction including either automated exposure control, iterative reconstructions, and /or weight based radiation dosing via mA and kV modification when appropriate to reduce radiation dose to as low as reasonably achievable. Contrast: 100 mL Omnipaque 350 intravenous contrast with 3-D MIP reconstructions of the arteries acquired. HISTORY: Left-sided chest pain and neck pain. COMPARISON: CT chest May 05, 2019. FINDINGS: Bone cement augmentation of an chronic L1 lumbar fracture. Heterogeneous fatty infiltration and atrophy of the prostate gland similar to the prior exam. Heart size normal. Aorta and esophagus are unremarkable. No adenopathy in the chest. No pulmonary artery emboli. No pneumothorax, pulmonary opacities or pleural effusions. IMPRESSION: No acute process. No pulmonary artery emboli. [] Course & Med Decision Making: Course & Med Decision Making Pertinent Labs and Imaging studies reviewed. (See chart for details) Pain unchanged with GI cocktail and Toradol and aspirin. Discussed with hospitalist will admit for further work-up. [] Dragon Disclaimer: Dragon Disclaimer: This electronic medical record was generated, in whole or in part, using a voice recognition dictation system. Departure Departure Impression: Primary Impression: Chest pain Additional Impression: Neck pain Disposition: ADMITTED INPT THIS HOSP Admitting Physician: NATALIA Condition: STABLE Referrals: OSMAN FUNES DO (PCP) Problem Qualifiers SELMA ELIZALDE MD Sep 07, 2020 03:33
[2020-09-07 03:48] LABS: BILIRUBIN,URINE NEGATIVE (NEG); CLARITY,URINE CLEAR; COLOR,URINE YELLOW; NITRITE,URINE NEGATIVE (NEG); PROTEIN,URINE NEGATIVE (NEG-TRACE); UROBILINOGEN,URINE 0.2 mg/dL (0.2 mg/dL)
[2020-09-07 03:49] LABS: CALCIUM 9.6 mg/dL (8.5-10.1); CREATININE 0.8 mg/dL (0.6-1.0); GFR 90.1; POTASSIUM 4.2 mmol/L (3.5-5.1)
[2020-09-07] MEDS ORDERED: ASPIRIN CHEWABLE 81 MG TABLET. PO ONE (04:00)
[2020-09-07 04:01] LABS: ALBUMIN 3.6 g/dL (3.4-5.0); ALBUMIN/GLOBULIN RATIO 0.8 (1.0-1.7); TOTAL BILIRUBIN 0.4 mg/dL (0.2-1.0); TOTAL PROTEIN 7.9 g/dL (6.4-8.2)
[2020-09-07 04:07] LABS: BACTERIA,URINE 0 /HPF (0-FEW); RBC,URINE 0 /HPF (0-2); WBC,URINE OCC /HPF (0-4)
[2020-09-07] MEDS ORDERED: CONTRAST GIVEN. MC PRN (04:45)
[2020-09-07] MEDS ORDERED: IOHEXOL 350 MG/ML 100 ML VIAL. IV ONE (05:00)
--- NOTE | 2020-09-07 05:04 | RAD ---
ADDENDUM #1 Addendum: The body the report should state there is heterogeneous fatty infiltration and atrophy of t he pancreas similar to the prior exam. The original report had a voice recognition laborer prestressed concrete erro r. Electronically signed by: Ge Sanchez MD (09/07/2020 5:15 AM) [facility] angiography chest with contrast PQRS statement: CT scans at this facility use dose reduction including either automated exposure cont rol, iterative reconstructions, and /or weight based radiation dosing via mA and kV modification when appropriate to reduce radiation dose to as low as reasonably achievable. Contrast: 100 mL Omnipaque 350 intravenous contrast with 3-D MIP reconstructions of the arteries acqu ired. HISTORY: Left-sided chest pain and neck pain. COMPARISON: CT chest May 05, 2019. FINDINGS: Bone cement augmentation of an chronic L1 lumbar fracture. Heterogeneous fatty infiltration and atrophy of the prostate gland similar to the prior exam. Heart size normal. Aorta and esophagus are unremarkable. No adenopathy in the chest. No pulmonary artery emboli. No pneumothorax, pulmonary opacities or pleural effusions. IMPRESSION: No acute process. No pulmonary artery emboli. Electronically signed by: Ge Sanchez MD (09/07/2020 5:01 AM) [facility]
[2020-09-07] MEDS ORDERED: LIDO:MAALOX 1:1 20 ML SINGLE DOSE. SWSW ONE (05:30)
[2020-09-07] MEDS ORDERED: KETOROLAC 15 MG/ML VIAL. IVP ONE (06:00)
[2020-09-07] MEDS ORDERED: ONDANSETRON PF 4 MG/2 ML VIAL. IV PRN (06:15)
[2020-09-07] MEDS ORDERED: ACETAMINOPHEN 325 MG TABLET. PO PRN (06:15)
--- NOTE | 2020-09-07 08:04 | NUR ---
The patient, Ms. Kennedy Emmanuel 54/F admitted due to chest pain arrived on the unit at 0735, on room air, via wheelchair. She's awake, alert, oriented x4, VSS. She was oriented to the unit policies and procedures, belongings were checked, and call light placed within reach.
[2020-09-07] MEDS ORDERED: CETI10TA16 PO (10:01)
[2020-09-07] MEDS ORDERED: MONT10TA49 PO (10:03)
[2020-09-07] MEDS ORDERED: DEXL60CA2 PO (10:05)
[2020-09-07] MEDS ORDERED: CRAN1CAP13 PO (10:05)
[2020-09-07] MEDS ORDERED: CLON-77 PO (10:06)
[2020-09-07] MEDS ORDERED: SERT50TA PO (10:06)
[2020-09-07] MEDS ORDERED: AZEL137S3 NS (10:08)
[2020-09-07] MEDS ORDERED: FLUT16SP NS (10:09)
[2020-09-07] MEDS ORDERED: BUDE10.2 IH (10:11)
[2020-09-07 11:00] VITALS: BP 113/57
--- NOTE | 2020-09-07 12:44 | PDOC1 ---
History and Physical Date of Admission Date of Admission 09/07/2020 Identification/Chief Complaint Chief Complaint Blurry vision Source Source: Chart review, Patient History of Present Illness History of Present Illness Patient is a 54-year-old female with past medical history of type 2 diabetes morbid obesity with a BMI of 50 hypertension dyslipidemia among other mor bidities who was in her usual state of health until approximately 5 days ago when he started complaining of burning sensation over the epigastrium. The patient denies any association with food intake does not get better with food intake nor worse with fasting she denies early satiety apparently she consulted Cindi Kohli after she had an evaluation at her plaster die maker office on Saturday. The patient has been started recently on new diabetic medications and she thought it was causing her the new symptoms her plaster die maker did not think this was the case. Patient following day corporate travel consultant Cindi kohli and she was informed that her symptoms may be related to an allergic reaction to the new medication. She had a chest x-ray done at the outside facility she has had a benign work-up in our facility as well ER physician requested a chest pain work-up with serial enzymes reason why we are admitting the patient. Most of her symptoms seem to be related to blurred vision she had an ophthalmological evaluation approximately in May as per the patient. No records are available for review. The patient denies double vision denies any pain over her eyes she denies retinal detachment compatible type of symptoms. Her diabetes recently has improved approximately a month ago before doing this change on her medications she was running in the 250 range but now she says that her readings are even below 102 up to 150. At the time my evaluation the patient denies any chest pain no palpitations no shortness of breath no dyspnea no pleurisy no recent contact with people that may have have been infected with COVID-19 no sputum production no diaphoresis no pleurisy no sensation of impending doom pain she refers is over the epigastrium and then she also is experiencing pain over the precordial area that is reproducible with deep palpation. The patient denies any trauma no recent exercise program or changes in her level of activity. She was in no apparent distress at the time of my visit plan of care has been explained detail and all of her concerns addressed to the best of my abilities Past Medical History Cardiovascular: CHF, HTN, Hyperlipidemia Pulmonary: Asthma GI: GERD Psych: Anxiety, Depression Endocrine: Diabetes Past Surgical History Past Surgical History: Tubal Ligation Family History Family History: No Significant Social History Smoke: No ALCOHOL: none Drugs: None Current Problem List Problem List Problems Medical Problems: (1) Chest pain Status: Acute (2) Neck pain Status: Acute Current Medications Current Medications Current Medications Medications (Trade) Dose Ordered Sig/Consuelo Start Time Stop Time Status Last Admin Dose Admin Acetaminophen (Tylenol) 650 mg PRN Q4HRS PRN 09/07/20 06:15 09/08/20 06:14 Aspirin (Aspirin Chewable) 324 mg 1X ONCE 09/07/20 04:00 09/07/20 04:02 DC 09/07/20 03:30 324 MG Fentanyl Citrate (Fentanyl 2ml Vial) 50 mcg PRN Q1HR PRN 09/07/20 06:15 09/08/20 06:14 Info (CONTRAST GIVEN -- Rx MONITORING) 1 each PRN DAILY PRN 09/07/20 04:45 09/09/20 04:44 Iohexol (Omnipaque 350 Mg/ml) 100 ml 1X ONCE 09/07/20 05:00 09/07/20 05:01 DC 09/07/20 04:50 100 ML Ketorolac Tromethamine (Toradol 15mg Vial) 15 mg 1X ONCE 09/07/20 06:00 09/07/20 06:01 DC 09/07/20 05:39 15 MG Multi-Ingredient Mouthwash/Gargle (Gi Cocktail) 20 ml 1X ONCE 09/07/20 05:30 09/07/20 05:31 DC 09/07/20 05:20 20 ML Ondansetron HCl (Zofran) 4 mg PRN Q8HRS PRN 09/07/20 06:15 09/08/20 06:14 Allergies Allergies Allergies Coded Allergies Type Severity Reaction Last Updated Verified sulfamethoxazole Allergy Severe Shortness of Air, generalized rash 09/07/20 Yes trimethoprim Allergy Severe Shortness of Air, generalized rash 09/07/20 Yes Penicillins Allergy Intermediate 01/10/15 Yes codeine Allergy Intermediate vomiting 01/10/15 Yes latex Allergy Intermediate rash 01/10/15 Yes metformin Allergy Intermediate n/v 01/10/15 Yes ROS Review of System CONSTITUTIONAL: No fever or chills EYES: No recent changes SKIN: No rash or itching CARDIOVASCULAR: No chest pain, syncope, palpitations, or edema RESPIRATORY: No SOB or cough GASTROINTESTINAL: No nausea, vomiting or abdominal pain NEUROLOGICAL: No headaches or weakness ENDOCRINE: No cold or heat intolerance GENITOURINARY: No urgency or frequency of urination MUSCULOSKELETAL: No back pain or joint pain LYMPHATICS: No enlarged lymph nodes PSYCHIATRIC: No anxiety or depression Physical Exam Physical Exam Gen.: morbidly obese in no apparent distress Head: Normal shape atraumatic Eyes: Pupils equal reactive to light and accommodation, normal conjunctivae and lids Ears: Normal shape Nose: Normal shape no trauma Mouth: No exudates of the back of throat no thrush no lesions Neck: Supple no JVD no carotid bruit or lymphadenopathy no thyromegaly Chest: Lungs clear to auscultation with good inspiratory effort no crackles rales or rhonchi Cardiovascular: S1-S2 regular rhythm no murmurs gallops or rubs Abdomen: Bowel sounds present soft nontender no hepatosplenomegaly appreciated sign Extremities: No clubbing no cyanosis no edema peripheral pulses palpated bilaterally Neurological: Alert awake oriented in person time place and situation, cranial nerves II through XII intact, no motor or sensory deficits appreciated Psych: Appropriate mood, cooperative Vitals Vitals Vital Signs Date Time Temp Pulse Resp B/P (MAP) Pulse Ox O2 Delivery O2 Flow Rate FiO2 09/07/20 11:00 98.2 82 20 113/57 (75) 99 Room Air 98.2 Labs Labs Laboratory Tests Test 09/07/20 03:10 09/07/20 03:40 09/07/20 05:29 09/07/20 09:08 White Blood Count 7.5 x10^3/uL (4.0-11.0) Red Blood Count 4.62 x10^6/uL (3.50-5.40) Hemoglobin 12.7 g/dL (12.0-15.5) Hematocrit 38.9 % (36.0-47.0) Mean Corpuscular Volume 84 fL (79-100) Mean Corpuscular Hemoglobin 28 pg (25-35) Mean Corpuscular Hemoglobin Concent 33 g/dL (31-37) Red Cell Distribution Width 15.3 % (11.5-14.5) Platelet Count 311 x10^3/uL (140-400) Neutrophils (%) (Auto) 56 % (31-73) Lymphocytes (%) (Auto) 37 % (24-48) Monocytes (%) (Auto) 6 % (0-9) Eosinophils (%) (Auto) 1 % (0-3) Basophils (%) (Auto) 1 % (0-3) Neutrophils # (Auto) 4.2 x10^3/uL (1.8-7.7) Lymphocytes # (Auto) 2.8 x10^3/uL (1.0-4.8) Monocytes # (Auto) 0.5 x10^3/uL (0.0-1.1) Eosinophils # (Auto) 0.1 x10^3/uL (0.0-0.7) Basophils # (Auto) 0.0 x10^3/uL (0.0-0.2) D-Dimer (Esperanza) 0.35 ug/mlFEU (0.00-0.50) Sodium Level 139 mmol/L (136-145) Potassium Level 4.2 mmol/L (3.5-5.1) Chloride Level 102 mmol/L (98-107) Carbon Dioxide Level 24 mmol/L (21-32) Anion Gap 13 (6-14) Blood Urea Nitrogen 10 mg/dL (7-20) Creatinine 0.8 mg/dL (0.6-1.0) Estimated GFR (Cockcroft-Gault) 90.1 BUN/Creatinine Ratio 13 (6-20) Glucose Level 136 mg/dL (70-99) Lactic Acid Level 1.2 mmol/L (0.4-2.0) Calcium Level 9.6 mg/dL (8.5-10.1) Magnesium Level 2.0 mg/dL (1.8-2.4) Total Bilirubin 0.4 mg/dL (0.2-1.0) Aspartate Amino Transf (AST/SGOT) 18 U/L (15-37) Alanine Aminotransferase (ALT/SGPT) 25 U/L (14-59) Alkaline Phosphatase 107 U/L (46-116) Creatine Kinase 141 U/L (26-192) Myoglobin 52 ng/mL (9-82) Troponin I Quantitative < 0.017 ng/mL (0.000-0.055) < 0.017 ng/mL (0.000-0.055) XR-Aud-W-Type Natriuretic Peptide 41 pg/mL (0-124) Total Protein 7.9 g/dL (6.4-8.2) Albumin 3.6 g/dL (3.4-5.0) Albumin/Globulin Ratio 0.8 (1.0-1.7) Lipase 27 U/L (73-393) Urine Collection Type Unknown Urine Color Yellow Urine Clarity Clear Urine pH 5.0 (<5.0-8.0) Urine Specific [place] 1.010 (1.000-1.030) Urine Protein Negative mg/dL (NEG-TRACE) Urine Glucose (UA) Negative mg/dL (NEG) Urine Ketones (Stick) Negative mg/dL (NEG) Urine Blood Negative (NEG) Urine Nitrite Negative (NEG) Urine Bilirubin Negative (NEG) Urine Urobilinogen Dipstick 0.2 mg/dL (0.2 mg/dL) Urine Leukocyte Esterase Negative (NEG) Urine RBC 0 /HPF (0-2) Urine WBC Occ /HPF (0-4) Urine Squamous Epithelial Cells Few /LPF Urine Bacteria 0 /HPF (0-FEW) C-Reactive Protein, Quantitative 7.9 mg/L (0-3.3) Vitamin B12 Level 322 pg/mL (247-911) Thyroid Stimulating Hormone (TSH) 2.355 uIU/mL (0.358-3.74) Laboratory Tests Test 09/07/20 03:10 09/07/20 03:40 09/07/20 05:29 09/07/20 09:08 White Blood Count 7.5 x10^3/uL (4.0-11.0) Red Blood Count 4.62 x10^6/uL (3.50-5.40) Hemoglobin 12.7 g/dL (12.0-15.5) Hematocrit 38.9 % (36.0-47.0) Mean Corpuscular Volume 84 fL (79-100) Mean Corpuscular Hemoglobin 28 pg (25-35) Mean Corpuscular Hemoglobin Concent 33 g/dL (31-37) Red Cell Distribution Width 15.3 % (11.5-14.5) Platelet Count 311 x10^3/uL (140-400) Neutrophils (%) (Auto) 56 % (31-73) Lymphocytes (%) (Auto) 37 % (24-48) Monocytes (%) (Auto) 6 % (0-9) Eosinophils (%) (Auto) 1 % (0-3) Basophils (%) (Auto) 1 % (0-3) Neutrophils # (Auto) 4.2 x10^3/uL (1.8-7.7) Lymphocytes # (Auto) 2.8 x10^3/uL (1.0-4.8) Monocytes # (Auto) 0.5 x10^3/uL (0.0-1.1) Eosinophils # (Auto) 0.1 x10^3/uL (0.0-0.7) Basophils # (Auto) 0.0 x10^3/uL (0.0-0.2) D-Dimer ([place]) 0.35 ug/mlFEU (0.00-0.50) Sodium Level 139 mmol/L (136-145) Potassium Level 4.2 mmol/L (3.5-5.1) Chloride Level 102 mmol/L (98-107) Carbon Dioxide Level 24 mmol/L (21-32) Anion Gap 13 (6-14) Blood Urea Nitrogen 10 mg/dL (7-20) Creatinine 0.8 mg/dL (0.6-1.0) Estimated GFR (Cockcroft-Gault) 90.1 BUN/Creatinine Ratio 13 (6-20) Glucose Level 136 mg/dL (70-99) Lactic Acid Level 1.2 mmol/L (0.4-2.0) Calcium Level 9.6 mg/dL (8.5-10.1) Magnesium Level 2.0 mg/dL (1.8-2.4) Total Bilirubin 0.4 mg/dL (0.2-1.0) Aspartate Amino Transf (AST/SGOT) 18 U/L (15-37) Alanine Aminotransferase (ALT/SGPT) 25 U/L (14-59) Alkaline Phosphatase 107 U/L (46-116) Creatine Kinase 141 U/L (26-192) Myoglobin 52 ng/mL (9-82) Troponin I Quantitative < 0.017 ng/mL (0.000-0.055) < 0.017 ng/mL (0.000-0.055) XF-Vsv-P-Type Natriuretic Peptide 41 pg/mL (0-124) Total Protein 7.9 g/dL (6.4-8.2) Albumin 3.6 g/dL (3.4-5.0) Albumin/Globulin Ratio 0.8 (1.0-1.7) Lipase 27 U/L (73-393) Urine Collection Type Unknown Urine Color Yellow Urine Clarity Clear Urine pH 5.0 (<5.0-8.0) Urine Specific [place] 1.010 (1.000-1.030) Urine Protein Negative mg/dL (NEG-TRACE) Urine Glucose (UA) Negative mg/dL (NEG) Urine Ketones (Stick) Negative mg/dL (NEG) Urine Blood Negative (NEG) Urine Nitrite Negative (NEG) Urine Bilirubin Negative (NEG) Urine Urobilinogen Dipstick 0.2 mg/dL (0.2 mg/dL) Urine Leukocyte Esterase Negative (NEG) Urine RBC 0 /HPF (0-2) Urine WBC Occ /HPF (0-4) Urine Squamous Epithelial Cells Few /LPF Urine Bacteria 0 /HPF (0-FEW) C-Reactive Protein, Quantitative 7.9 mg/L (0-3.3) Vitamin B12 Level 322 pg/mL (247-911) Thyroid Stimulating Hormone (TSH) 2.355 uIU/mL (0.358-3.74) Images Images Radiology/Procedures: ADDENDUM #1 Addendum: The body the report should state there is heterogeneous fatty infil tration and atrophy of the pancreas similar to the prior exam. The original report had a voice recognition canvas baster jumpbasting error. Electronically signed by: Ge Sanchez MD (09/07/2020 5:15 AM) [facility] CT angiography chest with contrast PQRS statement: CT scans at this facility use dose reduction including either automated exposure control, iterative reconstructions, and /or weight based radiation dosing via mA and kV modification when appropriate to reduce radiation dose to as low as reasonably achievable. Contrast: 100 mL Omnipaque 350 intravenous contrast with 3-D MIP reconstructions of the arteries acquired. HISTORY: Left-sided chest pain and neck pain. COMPARISON: CT chest May 05, 2019. FINDINGS: Bone cement augmentation of an chronic L1 lumbar fracture. Heterogeneous fatty infiltration and atrophy of the prostate gland similar to the prior exam. Heart size normal. Aorta and esophagus are unremarkable. No adenopathy in the chest. No pulmonary artery emboli. No pneumothorax, pulmonary opacities or pleural effusions. IMPRESSION: No acute process. No pulmonary artery emboli. VTE Prophylaxis Ordered VTE Prophylaxis Devices: No VTE Pharmacological Prophylaxi: Yes Assessment/Plan Assessment/Plan Atypical chest pain, reproducible most likely costochondritis Dyspepsia Uncontrolled diabetes mellitus type 2 insulin requiring Hypertension History of CHF seems to be compensated at the present time GERD Diabetic gastroparesis most likely Morbid obesity with a BMI of 50 Plan Resume home medication Patient is already on Dexilant We will trend troponin as requested by emergency department Reassess in the a.m. Patient has an appointment with her plaster die maker in the a.m. we will encouraged to attend that appointment in order to address her diabetic treatment plan DVT prophylaxis Lovenox Justifications for Admission Other Justification JAGJIT SHELLEY MD Sep 07, 2020 12:44
[2020-09-07] MEDS ORDERED: MONTELUKAST SODIUM 10 MG TABLET. PO PRN (12:45)
[2020-09-07] MEDS ORDERED: ALBUTEROL SULFATE 2.5 MG/3 ML NEBU. NEB SCH (12:45)
[2020-09-07] MEDS: SERTRALINE 50 MG TABLET. PO SCH (13:00)
[2020-09-07] MEDS: clonazePAM 0.5 MG TABLET PO SCH ×2 (13:00→20:45)
[2020-09-07] MEDS: CETIRIZINE HCL 10 MG TABLET. PO SCH (13:00)
[2020-09-07] MEDS: POTASSIUM CHLORIDE 20 MEQ TABLET.ER. PO SCH (13:00)
[2020-09-07] MEDS: amLODIPine BESYLATE 5 MG TABLET PO SCH (13:39)
[2020-09-07] MEDS: AZELASTINE NASAL SPRAY 30ML BOTTLE. NS SCH ×2 (13:39→20:45)
[2020-09-07] MEDS: LACTOBACILLUS RHAMNOSUS GG 1 CAPSULE. PO SCH ×2 (13:44→20:45)
--- NOTE | 2020-09-07 14:31 | NUR ---
The patient's daughter called and asked about her mother's condition. Discussed with her that the patient is on the desk monitor and serial troponin was done. She asked about COVID testing and the clinical impression of the doctor. This nurse updated her based on the doctor's notes and told her that I will discuss the patient's plan of care with the hospitalist who is rounding the unit.The daughter told this nurse that we are not being helpful and hung up the phone.
[2020-09-07] MEDS ORDERED: DEXTROSE 50% 25 GM / 50ML DISP.SYRIN. IV PRN (14:45)
[2020-09-07] MEDS: ALBUTEROL SULFATE 2.5 MG/3 ML NEBU. NEB SCH ×2 (14:47→19:49)
[2020-09-07 15:00] VITALS: BP 144/73
--- NOTE | 2020-09-07 16:28 | NUR ---
SW following for discharge planning. Spoke with RN and reviewed chart. Pt on room air and a cardiac diet. Discharge plan is home, self-care. No anticipated SW needs on discharge.
[2020-09-07] MEDS: PANTOPRAZOLE 40 MG TABLET.DR. PO SCH (16:31)
[2020-09-07] MEDS: INSULIN LISPRO 300 UNITS/3 ML VIAL. SQ SCH (17:00)
[2020-09-07] MEDS: fentaNYL PF VIAL 100 MCG/2 ML VIAL IV PRN (18:33)
--- NOTE | 2020-09-07 18:43 | NUR ---
the patient complained of another episode of chest pain, 03/14 after taking pantoprazole. She characterizes the pain as burning. VSS, sinus rhythm on the monitor, prn pain med given. We'll continue to monitor.
[2020-09-07 19:00] VITALS: BP 125/73
[2020-09-07] MEDS: BUDESONIDE 0.5 MG/2 ML NEBU. NEB SCH (19:48)
[2020-09-07] MEDS ORDERED: ATORVASTATIN CALCIUM 10 MG TABLET. PO SCH (21:00)
[2020-09-07 23:54] VITALS: BP 140/74
[2020-09-08] MEDS: fentaNYL PF VIAL 100 MCG/2 ML VIAL IV PRN (00:04)
[2020-09-08 03:00] VITALS: BP 154/89
[2020-09-08 07:00] VITALS: BP 130/80
[2020-09-08] MEDS: ALBUTEROL SULFATE 2.5 MG/3 ML NEBU. NEB SCH ×2 (07:16→11:10)
[2020-09-08] MEDS: BUDESONIDE 0.5 MG/2 ML NEBU. NEB SCH (07:16)
[2020-09-08] MEDS: INSULIN LISPRO 300 UNITS/3 ML VIAL. SQ SCH ×2 (08:00→11:59)
[2020-09-08] MEDS: PANTOPRAZOLE 40 MG TABLET.DR. PO SCH (08:43)
[2020-09-08] MEDS: SERTRALINE 50 MG TABLET. PO SCH (08:43)
[2020-09-08] MEDS: LACTOBACILLUS RHAMNOSUS GG 1 CAPSULE. PO SCH (08:43)
[2020-09-08] MEDS: clonazePAM 0.5 MG TABLET PO SCH (08:43)
[2020-09-08] MEDS: CETIRIZINE HCL 10 MG TABLET. PO SCH (08:44)
[2020-09-08] MEDS: amLODIPine BESYLATE 5 MG TABLET PO SCH (08:44)
[2020-09-08] MEDS: AZELASTINE NASAL SPRAY 30ML BOTTLE. NS SCH (08:45)
[2020-09-08] MEDS: POTASSIUM CHLORIDE 20 MEQ TABLET.ER. PO SCH (08:45)
[2020-09-08] MEDS ORDERED: FLUTICASONE 50MCG/NASAL SPRAY 16GM BOTTLE. NS SCH (09:00)
[2020-09-08 09:17] LABS: BASO % 0 % (0-3); EOS % 1 % (0-3); HEMATOCRIT 37.7 % (36.0-47.0); HEMOGLOBIN 12.2 g/dL (12.0-15.5); LYMPH # 4.4 x10^3/uL (1.0-4.8); LYMPH % 61 % (24-48); MEAN CORPUSCULAR HEMOGLOBIN 28 pg (25-35); MEAN CORPUSCULAR HGB CONC 32 g/dL (31-37); MEAN CORPUSCULAR VOLUME 85 fL (79-100); MONO # 0.6 x10^3/uL (0.0-1.1); MONO % 8 % (0-9); NEUT # 2.2 x10^3/uL (1.8-7.7); NEUT % 30 % (31-73); PLATELET COUNT 323 x10^3/uL (140-400); RED BLOOD COUNT 4.44 x10^6/uL (3.50-5.40); RED CELL DISTRIBUTION WIDTH 15.4 % (11.5-14.5); WHITE BLOOD COUNT 7.2 x10^3/uL (4.0-11.0)
[2020-09-08 09:31] LABS: CALCIUM 9.2 mg/dL (8.5-10.1); CREATININE 0.8 mg/dL (0.6-1.0); GFR 90.1; POTASSIUM 3.6 mmol/L (3.5-5.1)
[2020-09-08] MEDS ORDERED: SUCR1TAB35 PO (09:48)
[2020-09-08] MEDS ORDERED: ONDANSETRON PF 4 MG/2 ML VIAL. IVP PRN (10:15)
[2020-09-08 11:00] VITALS: BP 158/89
--- NOTE | 2020-09-08 12:04 | NUR ---
SW following for discharge planning. Spoke with RN and reviewed chart. Pt's Rapid COVID result negative. Discharge plan remains home, self-care. Possible discharge today, 09/08. No SW needs on discharge.
--- NOTE | 2020-09-08 12:34 | NUR ---
Discharge instructions given to pt regarding follow up appointments. Pt educated on medications, CP, anxiety, GERD, and diet. Pt verbalizes understanding and will be following up with her vamp liner in the evening and PCP tomorrow.
--- NOTE | 2020-09-08 13:34 | PDOC3 ---
Discharge Summary Visit Information Date of Admission: Sep 07, 2020 Date of Discharge: Sep 08, 2020 Admitting Diagnosis Comment: Atypical chest pain, reproducible most likely costochondritis Dyspepsia Uncontrolled diabetes mellitus type 2 insulin requiring Hypertension History of CHF seems to be compensated at the present time GERD Diabetic gastroparesis most likely Morbid obesity with a BMI of 50 Final Diagnosis Problems Medical Problems: (1) Chest pain Status: Acute (2) Neck pain Status: Acute Atypical chest pain, reproducible most likely costochondritis Dyspepsia Uncontrolled diabetes mellitus type 2 insulin requiring Hypertension History of CHF seems to be compensated at the present time GERD Diabetic gastroparesis most likely Morbid obesity with a BMI of 50 Brief Hospital Course Allergies Allergies Coded Allergies Type Severity Reaction Last Updated Verified sulfamethoxazole Allergy Severe Shortness of Air, generalized rash 09/07/20 Yes trimethoprim Allergy Severe Shortness of Air, generalized rash 09/07/20 Yes Penicillins Allergy Intermediate 01/10/15 Yes codeine Allergy Intermediate vomiting 01/10/15 Yes latex Allergy Intermediate rash 01/10/15 Yes metformin Allergy Intermediate n/v 01/10/15 Yes Vital Signs Vital Signs Date Time Temp Pulse Resp B/P (MAP) Pulse Ox O2 Delivery O2 Flow Rate FiO2 09/08/20 11:00 97.7 69 20 158/89 (112) 99 Room Air 97.7 Lab Results Laboratory Tests Test 09/07/20 03:10 09/07/20 03:40 09/07/20 05:29 09/07/20 09:08 White Blood Count 7.5 x10^3/uL (4.0-11.0) Red Blood Count 4.62 x10^6/uL (3.50-5.40) Hemoglobin 12.7 g/dL (12.0-15.5) Hematocrit 38.9 % (36.0-47.0) Mean Corpuscular Volume 84 fL (79-100) Mean Corpuscular Hemoglobin 28 pg (25-35) Mean Corpuscular Hemoglobin Concent 33 g/dL (31-37) Red Cell Distribution Width 15.3 % (11.5-14.5) Platelet Count 311 x10^3/uL (140-400) Neutrophils (%) (Auto) 56 % (31-73) Lymphocytes (%) (Auto) 37 % (24-48) Monocytes (%) (Auto) 6 % (0-9) Eosinophils (%) (Auto) 1 % (0-3) Basophils (%) (Auto) 1 % (0-3) Neutrophils # (Auto) 4.2 x10^3/uL (1.8-7.7) Lymphocytes # (Auto) 2.8 x10^3/uL (1.0-4.8) Monocytes # (Auto) 0.5 x10^3/uL (0.0-1.1) Eosinophils # (Auto) 0.1 x10^3/uL (0.0-0.7) Basophils # (Auto) 0.0 x10^3/uL (0.0-0.2) D-Dimer ([place]anza) 0.35 ug/mlFEU (0.00-0.50) Sodium Level 139 mmol/L (136-145) Potassium Level 4.2 mmol/L (3.5-5.1) Chloride Level 102 mmol/L (98-107) Carbon Dioxide Level 24 mmol/L (21-32) Anion Gap 13 (6-14) Blood Urea Nitrogen 10 mg/dL (7-20) Creatinine 0.8 mg/dL (0.6-1.0) Estimated GFR (Cockcroft-Gault) 90.1 BUN/Creatinine Ratio 13 (6-20) Glucose Level 136 mg/dL (70-99) Lactic Acid Level 1.2 mmol/L (0.4-2.0) Calcium Level 9.6 mg/dL (8.5-10.1) Magnesium Level 2.0 mg/dL (1.8-2.4) Total Bilirubin 0.4 mg/dL (0.2-1.0) Aspartate Amino Transf (AST/SGOT) 18 U/L (15-37) Alanine Aminotransferase (ALT/SGPT) 25 U/L (14-59) Alkaline Phosphatase 107 U/L (46-116) Creatine Kinase 141 U/L (26-192) Myoglobin 52 ng/mL (9-82) Troponin I Quantitative < 0.017 ng/mL (0.000-0.055) < 0.017 ng/mL (0.000-0.055) BV-Tyl-Q-Type Natriuretic Peptide 41 pg/mL (0-124) Total Protein 7.9 g/dL (6.4-8.2) Albumin 3.6 g/dL (3.4-5.0) Albumin/Globulin Ratio 0.8 (1.0-1.7) Lipase 27 U/L (73-393) Urine Collection Type Unknown Urine Color Yellow Urine Clarity Clear Urine pH 5.0 (<5.0-8.0) Urine Specific [place] 1.010 (1.000-1.030) Urine Protein Negative mg/dL (NEG-TRACE) Urine Glucose (UA) Negative mg/dL (NEG) Urine Ketones (Stick) Negative mg/dL (NEG) Urine Blood Negative (NEG) Urine Nitrite Negative (NEG) Urine Bilirubin Negative (NEG) Urine Urobilinogen Dipstick 0.2 mg/dL (0.2 mg/dL) Urine Leukocyte Esterase Negative (NEG) Urine RBC 0 /HPF (0-2) Urine WBC Occ /HPF (0-4) Urine Squamous Epithelial Cells Few /LPF Urine Bacteria 0 /HPF (0-FEW) C-Reactive Protein, Quantitative 7.9 mg/L (0-3.3) Vitamin B12 Level 322 pg/mL (247-911) Thyroid Stimulating Hormone (TSH) 2.355 uIU/mL (0.358-3.74) Test 09/07/20 12:00 09/07/20 16:47 09/07/20 19:17 09/08/20 07:59 Troponin I Quantitative < 0.017 ng/mL (0.000-0.055) Glucose (Fingerstick) 99 mg/dL (70-99) 118 mg/dL (70-99) 111 mg/dL (70-99) Test 09/08/20 08:10 09/08/20 08:36 09/08/20 11:29 White Blood Count 7.2 x10^3/uL (4.0-11.0) Red Blood Count 4.44 x10^6/uL (3.50-5.40) Hemoglobin 12.2 g/dL (12.0-15.5) Hematocrit 37.7 % (36.0-47.0) Mean Corpuscular Volume 85 fL (79-100) Mean Corpuscular Hemoglobin 28 pg (25-35) Mean Corpuscular Hemoglobin Concent 32 g/dL (31-37) Red Cell Distribution Width 15.4 % (11.5-14.5) Platelet Count 323 x10^3/uL (140-400) Neutrophils (%) (Auto) 30 % (31-73) Lymphocytes (%) (Auto) 61 % (24-48) Monocytes (%) (Auto) 8 % (0-9) Eosinophils (%) (Auto) 1 % (0-3) Basophils (%) (Auto) 0 % (0-3) Neutrophils # (Auto) 2.2 x10^3/uL (1.8-7.7) Lymphocytes # (Auto) 4.4 x10^3/uL (1.0-4.8) Monocytes # (Auto) 0.6 x10^3/uL (0.0-1.1) Eosinophils # (Auto) 0.0 x10^3/uL (0.0-0.7) Basophils # (Auto) 0.0 x10^3/uL (0.0-0.2) Sodium Level 140 mmol/L (136-145) Potassium Level 3.6 mmol/L (3.5-5.1) Chloride Level 105 mmol/L (98-107) Carbon Dioxide Level 28 mmol/L (21-32) Anion Gap 7 (6-14) Blood Urea Nitrogen 8 mg/dL (7-20) Creatinine 0.8 mg/dL (0.6-1.0) Estimated GFR (Cockcroft-Gault) 90.1 Glucose Level 106 mg/dL (70-99) Calcium Level 9.2 mg/dL (8.5-10.1) SARS-CoV-2 Antigen (Rapid) Negative (NEGATIVE) Glucose (Fingerstick) 99 mg/dL (70-99) Laboratory Tests Test 09/07/20 16:47 09/07/20 19:17 09/08/20 07:59 09/08/20 08:10 Glucose (Fingerstick) 99 mg/dL (70-99) 118 mg/dL (70-99) 111 mg/dL (70-99) White Blood Count 7.2 x10^3/uL (4.0-11.0) Red Blood Count 4.44 x10^6/uL (3.50-5.40) Hemoglobin 12.2 g/dL (12.0-15.5) Hematocrit 37.7 % (36.0-47.0) Mean Corpuscular Volume 85 fL (79-100) Mean Corpuscular Hemoglobin 28 pg (25-35) Mean Corpuscular Hemoglobin Concent 32 g/dL (31-37) Red Cell Distribution Width 15.4 % (11.5-14.5) Platelet Count 323 x10^3/uL (140-400) Neutrophils (%) (Auto) 30 % (31-73) Lymphocytes (%) (Auto) 61 % (24-48) Monocytes (%) (Auto) 8 % (0-9) Eosinophils (%) (Auto) 1 % (0-3) Basophils (%) (Auto) 0 % (0-3) Neutrophils # (Auto) 2.2 x10^3/uL (1.8-7.7) Lymphocytes # (Auto) 4.4 x10^3/uL (1.0-4.8) Monocytes # (Auto) 0.6 x10^3/uL (0.0-1.1) Eosinophils # (Auto) 0.0 x10^3/uL (0.0-0.7) Basophils # (Auto) 0.0 x10^3/uL (0.0-0.2) Sodium Level 140 mmol/L (136-145) Potassium Level 3.6 mmol/L (3.5-5.1) Chloride Level 105 mmol/L (98-107) Carbon Dioxide Level 28 mmol/L (21-32) Anion Gap 7 (6-14) Blood Urea Nitrogen 8 mg/dL (7-20) Creatinine 0.8 mg/dL (0.6-1.0) Estimated GFR (Cockcroft-Gault) 90.1 Glucose Level 106 mg/dL (70-99) Calcium Level 9.2 mg/dL (8.5-10.1) Test 09/08/20 08:36 09/08/20 11:29 SARS-CoV-2 Antigen (Rapid) Negative (NEGATIVE) Glucose (Fingerstick) 99 mg/dL (70-99) Brief Hospital Course Patient is a 54-year-old female with past medical history of type 2 diabetes morbid obesity with a BMI of 50 hypertension dyslipidemia among other morbidities who was in her usual state of health until approximately 5 days ago when he started complaining of burning sensation over the epigastrium. The patient denies any association with food intake does not get better with food intake nor worse with fasting she denies early satiety apparently she consulted Cindi Chavez after she had an evaluation at her hearing aid mechanic office on Saturday. The patient has been started recently on new diabetic medications and she thought it was causing her the new symptoms her hearing aid mechanic did not think this was the case. Patient following day healthcare market consultant Cindi chavez and she was informed that her symptoms may be related to an allergic reaction to the new medication. She had a chest x-ray done at the outside facility she has had a benign work-up in our facility as well ER physician requested a chest pain work-up with serial enzymes reason why we are admitting the patient. Most of her symptoms seem to be related to blurred vision she had an ophthalmological evaluation approximately in May as per the patient. No records are available for review. The patient denies double vision denies any pain over her eyes she denies retinal detachment compatible type of symptoms. Her diabetes recently has improved approximately a month ago before doing this change on her medications she was running in the 250 range but now she says that her readings are even below 102 up to 150. At the time my evaluation the patient denies any chest pain no palpitations no shortness of breath no dyspnea no pleurisy no recent contact with people that may have have been infected with COVID-19 no sputum production no diaphoresis no pleurisy no sensation of impending doom pain she refers is over the epigastrium and then she also is experiencing pain over the precordial area that is reproducible with deep palpation. The patient denies any trauma no recent exercise program or changes in her level of activity. She was in no apparent distress at the time of my visit plan of care has been explained detail and all of her concerns addressed to the best of my abilities She had a very uneventful hospital stay, her symptoms seem to be stemming more from the GI standpoint of view with most likely gastroparesis playing a role. The patient has had poorly controlled diabetes and given her BMI certainly she would benefit from weight loss and also adjustment of her diet in order to have a much better glycemic control. She has an appointment with her hearing aid mechanic in the afternoon which I have encouraged to keep in order to address this issues. I provided her with a prescription for Carafate she has been taking Dexilant with very little relief of her symptoms and encouraged her to follow-up with her primary care physician as well in order to address this dyspepsia. Signs and symptoms of concern and when to seek medical attention again were discussed prior to discharge, reassurance has been provided. 3 sets of cardiac enzymes were negative and she did not present chest discomfort nor angina type of symptoms during her hospital stay. Telemetry was normal and given the reproducible nature of her symptoms most likely may have also a component of musculoskeletal derangement over her neck and upper chest. Assessment Assessment Radiology/Procedures: ADDENDUM #1 Addendum: The body the report should state there is heterogeneous fatty infiltration and atrophy of the pancreas similar to the prior exam. The original report had a voice recognition senior informatica developer error. Electronically signed by: Ge Sanchez MD (09/07/2020 5:15 AM) [facility] CT angiography chest with contrast PQRS statement: CT scans at this facility use dose reduction including either automated exposure control, iterative reconstructions, and /or weight based radiation dosing via mA and kV modification when appropriate to reduce radiation dose to as low as reasonably achievable. Contrast: 100 mL Omnipaque 350 intravenous contrast with 3-D MIP reconstructions of the arteries acquired. HISTORY: Left-sided chest pain and neck pain. COMPARISON: CT chest May 05, 2019. FINDINGS: Bone cement augmentation of an chronic L1 lumbar fracture. Hetero geneous fatty infiltration and atrophy of the prostate gland similar to the prior exam. Heart size normal. Aorta and esophagus are unremarkable. No adenopathy in the chest. No pulmonary artery emboli. No pneumothorax, pulmonary opacities or pleural effusions. IMPRESSION: No acute process. No pulmonary artery emboli. Discharge Information Condition at Discharge: Improved Follow Up: Weeks Disposition/Orders: D/C to Home Scheduled Amlodipine Besylate (Amlodipine Besylate) 5 Mg Tablet, 5 MG PO DAILY, (Reported) Entered as Reported by: ELIEZER SHERMAN on 12/26/14831 Last Taken: Unknown Dose on 09/06/20 Last Action: Continued on 09/07/20 1236 by JAGJIT SHELLEY MD Atorvastatin Calcium (Atorvastatin Calcium) 10 Mg Tablet, 10 MG PO HS for FOR C HOLESTEROL, #30 Ref 0 (Reported) Entered as Reported by: ELIEZER SHERMAN on 5/24/15 0832 Last Taken: Unknown Dose on 09/06/20 Last Action: Continued on 09/07/20 1236 by JAGJIT SHELLEY MD Azelastine Hcl (Azelastine Hcl) 137 Mcg/0.137 Ml [place].pump, 2 SPRAY NS BID for allergic rhinitis for 30 Days, #30 Ref 0 (Reported) Entered as Reported by: PATRICIA VILLATORO on 09/07/20 1008 Last Taken: Unknown Dose on 09/06/20 Last Action: Continued on 09/07/20 1236 by JAGJIT SHELLEY MD Budesonide/Formoterol Fumarate (Symbicort 160-4.5 Mcg Inhaler) 10.2 Gm Hfa.aer.ad, 2 PUFF IH BID for asthma, #10.6 Ref 3 (Reported) Entered as Reported by: PATRICIA VILLATORO on 09/07/20 1011 Last Taken: Unknown Dose on 09/06/20 Last Action: Converted on 09/07/20 1236 by JAGJIT SHELLEY MD Cetirizine Hcl (Cetirizine Hcl) 10 Mg Tablet, 1 TAB PO DAILY for allergies, #30 Ref 5 (Reported) Entered as Reported by: PATRICIA VILLATORO on 09/07/20 1001 Last Taken: Unknown Dose on 09/06/20 Last Action: Continued on 09/07/20 1236 by JAGJIT SHELLEY MD Clonazepam (Clonazepam ) 0.5 Mg Tablet, 0.5 MG PO BID for FOR ANXIETY, (Reported) Entered as Reported by: PATRICIA VILLATORO on 09/07/20 1006 Last Taken: Unknown Dose on Unknown Date & Time Last Action: Continued on 09/07/20 1236 by JAGJIT SHELLEY MD Cran/C/B.coag/Fos/L.acid/L.rha (Probiotic Plus & Cranberry Cap) 1 Each Capsule, 1 CAP PO DAILY for supplement for 30 Days, #30 Ref 0 (Reported) Entered as Reported by: PATRICIA VILLATORO on 09/07/20 1005 Last Taken: Unknown Dose on 09/06/20 Last Action: Converted on 09/07/20 1236 by JAGJIT SHELLEY MD Fluticasone Propionate (Fluticasone Propionate Nasal [place]) 16 Gm [place].susp, 2 SPRAY NS DAILY for allergic rhinitis, #1 Ref 11 (Reported) Entered as Reported by: PATRICIA VILLATORO on 09/07/20 1009 Last Taken: Unknown Dose on 09/06/20 Last Action: Continued on 09/07/20 1236 by JAGJIT SHELLEY MD Potassium Chloride (Klor-Con M20) 20 Meq Tab.er.prt, 20 MEQ PO DAILY, (Reported) Entered as Reported by: ELIEZER SHERMAN on 12/26/14 0832 Last Taken: Unknown Dose on 09/06/20 Last Action: Continued on 09/07/20 1236 by JAGJIT SHLELEY MD Sertraline Hcl (Zoloft) 50 Mg Tablet, 1 TAB PO DAILY for depression, #30 Ref 2 (Reported) Entered as Reported by: PATRICIA VILLATORO on 09/07/20 100 Last Taken: Unknown Dose on 09/06/20 Last Action: Continued on 09/07/206 by JAGJIT SHELLEY MD Sucralfate (Carafate) 1 Gm Tablet, 1 TAB PO QID for Dyspepsia for 30 Days, #120 Ref 0 Prescribed by: JAGJIT SHELLEY MD on 09/08/20 0948 Scheduled PRN Montelukast Sodium (Montelukast Sodium Tablet ) 10 Mg Tablet, 10 MG PO HS PRN for asthma, Ref 0 (Reported) Entered as Reported by: PATRICIA VILLATORO on 09/07/20 1003 Last Taken: Unknown Dose on 09/06/20 Last Action: Continued on 09/07/206 by JAGJIT SHELLEY MD Miscellaneous Medications Albuterol Sulfate (Albuterol Sulfate Neb Soln) 2.5 Mg/3 Ml Vial.neb, 2.5 MG NEB for FOR ASTHMA, Ref 0 (Reported) Entered as Reported by: ELIEZER SHERMAN on 12/26/14 0832 Last Taken: Unknown Dose on 09/06/20 Last Action: Continued on 09/07/20 1235 by JAGJIT SHELLEY MD Discontinued Medications Dexlansoprazole (Dexilant) 60 Mg Cap., 1 CAP PO DAILY for GERD for 30 Days, #30 Ref 0 (Reported) Entered as Reported by: PATRICIA VILLATORO on 09/07/20 1005 Last Taken: Unknown Dose on 09/06/20 Last Action: Converted on 09/07/20 1236 by JAGJIT SHELLEY MD Furosemide (Furosemide) 40 Mg Tablet, 40 MG PO DAILY, (Reported) Entered as Reported by: ELIEZER SHERMAN on 12/26/14831 Last Action: Discontinued on 09/07/20 1010 by PATRICIA VILLATORO Glyburide (Glyburide) 5 Mg Tablet, 5 MG PO DAILY, (Reported) Entered as Reported by: ELIEZER SHERMAN on 12/26/14831 Last Action: Discontinued on 09/07/20 1010 by PATRICIA VILLATORO Justicifation of Admission Dx: Justifications for Admission: Justification of Admission Dx: Yes JAGJIT SHELLEY MD Sep 08, 2020 13:34
--- NOTE | 2020-09-09 08:58 | NUR ---
IP: Attempted to contact pt concerning COVID results. No answer. Left a voicemail to return the call.
--- NOTE | 2020-09-09 10:01 | NUR ---
I: Pt returned my call. Informed pt of negative COVID results. Pt verbalized understanding.
== END 2020-09-08 12:25 | disposition home or self-care (01) ==
LOC: ER 02:52 → 6 SOUTH 05:56
PROVIDERS: ADMIT Internal Medicine; ATTEND Internal Medicine
DX: R07.89 Other chest pain (principal); Z20.828 Contact with and (suspected) exposure to other viral communicable diseases; M54.2 Cervicalgia; I11.0 Hypertensive heart disease with heart failure; I50.9 Heart failure, unspecified; J45.909 Unspecified asthma, uncomplicated; E78.00 Pure hypercholesterolemia, unspecified; E78.5 Hyperlipidemia, unspecified; F41.9 Anxiety disorder, unspecified; F32.9 Major depressive disorder, single episode, unspecified; E11.65 Type 2 diabetes mellitus with hyperglycemia; E66.01 Morbid (severe) obesity due to excess calories; E11.43 Type 2 diabetes mellitus with diabetic autonomic (poly)neuropathy; K21.9 Gastro-esophageal reflux disease without esophagitis; M94.0 Chondrocostal junction syndrome [Tietze]; K86.89 Other specified diseases of pancreas; K31.84 Gastroparesis; M48.56XA Collapsed vertebra, not elsewhere classified, lumbar region, initial encounter for fracture; Z68.43 Body mass index [BMI] 50.0-59.9, adult; Z79.4 Long term (current) use of insulin; Z98.51 Tubal ligation status; Z79.82 Long term (current) use of aspirin
CPT/HCPCS: 36415; 71275; 80048; 80053; 81001; 82550; 82607; 82962; 83605; 83690; 83735; 83874; 83880; 84443; 84484; 85025; 85379; 86140; 87426; 93005; 94640; 94760; 96374; 96375; 96376; 99285; G0378; J1885; J2405; J3010; J7613; J7626; Q9967; U0003; G0379

== ENCOUNTER → 2020-10-25 | Outpatient (CLI) | payer MEDICAID ==
[~2020-10-25] MED LIST changes: +AZEL137S3 NS; +BUDE10.2 IH; +CETI10TA16 PO; +CLON-77 PO; +CRAN1CAP13 PO; +DEXL60CA2 PO; +FLUT16SP NS; +LIRA0.6P2 SQ; +MONT10TA49 PO; +SERT50TA PO; +SUCR1TAB35 PO
== END ==
LOC: LAB 10:40
PROVIDERS: ATTEND Internal Medicine Gastroenterology
DX: Z01.812 Encounter for preprocedural laboratory examination (principal); R10.13 Epigastric pain; Z20.822 Contact with and (suspected) exposure to COVID-19
CPT/HCPCS: U0003

== ENCOUNTER → 2020-10-26 | Day surgery (SDC) | payer MEDICAID ==
[~2020-10-26] MED LIST changes: +IV RINGERS,LACTATED 1000ML 1,000 ML IV SCH; +PROPOFOL 10 MG/ML (20ML) VIAL. IV ONE
[2020-10-26 09:20] VITALS: BP 151/87
--- NOTE | 2020-11-01 16:07 | PATHOLOGY ---
[facility] Accession Number: [id number] . 01 Material submitted: . gastrointestinal site - GASTRIC POLYPS . 01 Clinical history: . EPIGASTRIC PAIN EGD GASTRIC POLYPS . 02 Diagnosis: Gastric biopsies, gastric body polyps: - Hyperplastic polyps, showing focal superficial erosion and acute and chronic inflammation. - Superficial active chronic gastritis, with numerous Helicobacter organisms identified. . (JPM:mml/barb; 10/31/2020) [facility] 11/01/2020 0849 Local . 02 Comment: Sections of the gastric body biopsy reveal several segments of hyperplastic gastric polyps showing congestion with focal erosion and acute and chronic inflammation. There is also a segment of gastric body mucosa showing superficial congestion and active chronic inflammation with presence of a lymphoid aggregate. A properly-controlled immunoperoxidase stain for Helicobacter is obtained and reveals numerous Helicobacter organisms. There are no adenomatous changes or evidence of malignancy. . Special stain: Immunoperoxidase stain for Helicobacter on A1 . (JPM:mml/barb; 11/01/2020) . 02 Electronically signed: . Newton Barnett MD, Pathologist NPI- [id number] . 01 Gross description: . The specimen is received in formalin, labeled "Trayce Green, gastric polyps". Received are four segments of light brown tissue ranging in size from 0.3-1.0 cm in maximum dimensions. The surgical margin of the larger segment is inked and the segment is bisected. The specimen is submitted entirely in cassette A1. ([employer]; 10/28/2020) QA/QA 10/28/2020 1114 Local . 02 Pathologist provided ICD-10: K31.7, K25.9, K29.00, K29.50, K29.30 . 02 CPT . 216066, [id number] Specimen Comment: A courtesy copy of this report has been sent to [phone], [phone] Specimen Comment: [id number] Specimen Comment: Report sent to / DR HEBERT Specimen Comment: A duplicate report has been generated due to demographic updates. Performed at: 01 [facility] [address] [facility] [address], [place] [id number] MD Glen Romero MD Phone: [phone] Performed at: 02 [facility] [address] [place], [place] [id number] MD Newton Barnett MD Phone: [phone]
== END | disposition home or self-care (01) ==
LOC: SURG 07:18
PROVIDERS: ATTEND Internal Medicine Gastroenterology
DX: R10.13 Epigastric pain (principal); K31.89 Other diseases of stomach and duodenum; K29.30 Chronic superficial gastritis without bleeding; K21.9 Gastro-esophageal reflux disease without esophagitis; I10 Essential (primary) hypertension; E78.00 Pure hypercholesterolemia, unspecified; I48.91 Unspecified atrial fibrillation; J45.909 Unspecified asthma, uncomplicated; E66.9 Obesity, unspecified; E11.9 Type 2 diabetes mellitus without complications; F41.9 Anxiety disorder, unspecified; F32.9 Major depressive disorder, single episode, unspecified; Z98.51 Tubal ligation status; Z98.890 Other specified postprocedural states; Z79.82 Long term (current) use of aspirin; Z79.84 Long term (current) use of oral hypoglycemic drugs; Z79.899 Other long term (current) drug therapy; Z88.0 Allergy status to penicillin; Z88.1 Allergy status to other antibiotic agents; Z88.8 Allergy status to other drugs, medicaments and biological substances; Z91.040 Latex allergy status
CPT/HCPCS: 43239; 82962; 88305; 88342; J2704